=== PATIENT | female | born 1930 | race Caucasian/White ===

== ENCOUNTER → 2016-05-09 | Outpatient (CLI) | payer MEDICARE ==
[~2016-05-09] MED LIST: AMLO1TAB16 PO; ATEN100T13 PO; CALC-69 PO; CALC-762 PO; CLPD75T PO; DENO60DI SQ; HYDR-33 PO; HYDR500C2 PO; IBP200T PO; MAGN400T39 PO; ONDA4TAB8 PO; SMV20T PO
--- NOTE | 2016-05-09 12:04 | Diagnostic Imaging Report ---
PROCEDURE: CT chest without contrast. TECHNIQUE: Multiple contiguous axial images were obtained through the chest without the use of intravenous contrast. INDICATION: Followup of 5 mm nodule reported on previous CT scan of the abdomen from 05/04/2015. FINDINGS: The lungs are well-aerated. The 5 mm nodule is again noted in the right lower lobe. This has not changed in appearance. There is a noncalcified nodule in the left upper lobe measuring 6 mm. No other nodules are present. There are are no infiltrates. No mediastinal or hilar adenopathy of pathologic size. No pleural effusions or pericardial effusion. Aorta is densely calcified. The aortic root measures 3.4 cm. IMPRESSION: 1. Stable right lower lobe pulmonary nodule measuring 5 mm. This is consistent with granuloma. 2. Additional 6 mm pulmonary nodule noted in the left upper lobe. This area has not been evaluated previously. Depending on the clinical conditions repeat one-year exam would be a consideration. Dictated by: Dictated on workstation # [id number]
== END ==
LOC: RAD 11:05
PROVIDERS: ATTEND Family Medicine
DX: R91.1 Solitary pulmonary nodule (principal); R91.8 Other nonspecific abnormal finding of lung field
CPT/HCPCS: 71250